=== PATIENT | female | born 1990 | race Caucasian/White ===

== ENCOUNTER 2021-07-28 12:37 | Emergency (ER) | payer MEDICAID ==
[2021-07-28 12:55] VITALS: BP 136/76; PULSE 100
--- NOTE | 2021-07-28 13:15 | EDM.PDOC ---
ED HPI GENERAL MEDICAL PROBLEM - General Chief Complaint: Eye Problems Stated Complaint: POSSIBLE PINK EYE Time Seen by Provider: 07/28/21 13:00 Source of Information: Reports: Patient, RN, RN Notes Reviewed History Limitations: Reports: No Limitations - History of Present Illness INITIAL COMMENTS - FREE TEXT/NARRATIVE: Brianna is a 30 y/o female who presents to the ED via personal vehicle with complaints of redness, swelling, and drainage to her left eye. The patient reports her symptoms began yesterday and have progressively worsened in the time. She notes the drainage from her eye is yellow and thin in consistency. She denies vision changes, headache, fever, shaking chills, sinus congestion, or cough. She denies sensation of scratching or itchiness to the eye. She denies contact with individuals with similar symptoms. She has taken no medications or performed any supportive cares for her symptoms. The patient states she is currently wearing contacts. - Related Data Allergies Allergy/AdvReac Type Severity Reaction Status Date / Time No Known Allergies Allergy Verified 07/28/21 12:53 Home Meds: Home Meds . [No Known Home Meds] 11/07/13 [History] Past Medical History - Past Health History Medical/Surgical History: Denies Medical/Surgical History HEENT History: Reports: None Cardiovascular History: Reports: None Respiratory History: Reports: None Gastrointestinal History: Reports: None Genitourinary History: Reports: None ELECTRO TECH History: Reports: Musculoskeletal History: Reports: None Neurological History: Reports: None Psychiatric History: Reports: None Endocrine/Metabolic History: Reports: None Hematologic History: Reports: None Immunologic History: Reports: None Oncologic (Cancer) History: Reports: None Dermatologic History: Reports: None - Infectious Disease History Infectious Disease History: Reports: None - Past Surgical History Head Surgeries/Procedures: Reports: None Social & Family History - Family History Family Medical History: No Pertinent Family History - Tobacco Use Tobacco Use Status *Q: Never Tobacco User - Caffeine Use Caffeine Use: Reports: Energy Drinks, Tea Other Caffeine Use: 2 cans/day - Recreational Drug Use Recreational Drug Use: No ED ROS GENERAL - Review of Systems Review Of Systems: Comprehensive ROS is negative, except as noted in HPI. ED EXAM GENERAL W FULL EYE - Physical Exam Exam: See Below Exam Limited By: No Limitations General Appearance: Alert, No Apparent Distress Eye Exam: Left Eye: Conjunctival Injection, Periorbital Changes (Erythema and edema), Bilateral Eye: EOMI, PERRL (3mm) With Correction: Yes Eyelids: Right: Normal Appearance, Left: Edema, Erythema, Lid Everted for Exam Conjunctiva & Sclera: Right: Normal Appearance, Left: Injected Extraocular Movements: Bilateral: Intact Pupils: Normal Accommodation Pupillary Size: Bilateral: 3 mm Pupillary Reaction: Bilateral: Brisk Ears: Normal External Exam, Normal Canal, Hearing Grossly Normal, Normal TMs Nose: Normal Inspection, Normal Mucosa, No Blood Throat/Mouth: Normal Inspection, Normal Oropharynx, Normal Voice, No Airway Compromise Head: Atraumatic, Normocephalic Neck: Normal Inspection, Supple, Non-Tender, Full Range of Motion Respiratory/Chest: No Respiratory Distress, Lungs Clear, Normal Breath Sounds, No Accessory Muscle Use, Chest Non-Tender Cardiovascular: Normal Peripheral Pulses, Regular Rate, Rhythm, No Gallop, No Murmur, No Rub GI/Abdominal: Normal Bowel Sounds, Soft, Non-Tender, No Distention, No Abnormal Bruit, No Mass, Pelvis Stable (Male) Exam: Deferred (Female) Exam: Deferred Rectal (Males) Exam: Deferred Rectal (Female) Exam: Deferred Back Exam: Normal Inspection, Full Range of Motion Extremities: Normal Inspection, Normal Range of Motion, Normal Capillary Refill Neurological: Alert, Oriented, CN II-XII Intact, Normal Cognition, Normal Gait, No Motor/Sensory Deficits Psychiatric: Normal Affect, Normal Mood Skin Exam: Warm, Dry, Intact, Normal Color, No Rash. No: Cyanosis, Jaundice, Mottled, Pallor Lymphatic: No Adenopathy ED EYE w/ Add Procedure - Eye Procedure Alcaine Drops Administered: No Antibiotic Oinment/Drps Admin: Left Eye Course - Vital Signs Last Recorded V/S: Last Vital Signs Temp 98.0 F 07/28/21 12:53 Pulse 100 07/28/21 12:53 Resp 18 07/28/21 12:53 BP 136/76 07/28/21 12:53 Pulse Ox 97 07/28/21 12:53 - Re-Assessments/Exams Free Text/Narrative Re-Assessment/Exam: 07/28/21 Findings of examination reviewed with patient. Will treat bacterial conjunctivitis with cipro drops. Supportive cares discussed. Patient inst ructed to follow up with primary care provider regarding todays visit. Red flag signs and symptoms which would warrant immediate reevaluation reviewed. Patient verbalized understanding and agreement with the plan of care. Departure - Departure Time of Disposition: 13:11 Disposition: Home, Self-Care 01 Condition: Good Clinical Impression: Bacterial conjunctivitis of left eye - Discharge Information *PRESCRIPTION DRUG MONITORING PROGRAM REVIEWED*: Not Applicable *COPY OF PRESCRIPTION DRUG MONITORING REPORT IN PATIENT DANE: Not Applicable Instructions: Bacterial Conjunctivitis, Adult Forms: ED Department Discharge Additional Instructions: Rx: ciprofloxacin 0.3% ophthalmic solution (#1 bottle) 1.) Start your eye drops today. 2.) Do not wear contacts while you are on antibiotic drops; do not wear your contacts from today as they are infected. 3.) Refrain from daycare settings until you have received 24 hours of antibiotics. 4.) Follow up with your primary care provider, or return to the emergency department, with any persistent or worsening symptoms despite medications. Sepsis Event Note (ED) - Evaluation Sepsis Screening Result: No Definite Risk - Focused Exam Vital Signs: Vital Signs Temp Pulse Resp BP Pulse Ox 07/28/21 12:53 98.0 F 100 18 136/76 97
== END 2021-07-28 13:18 | disposition home or self-care (01) ==
LOC: DL.ED 12:37
DX: H10.022 Other mucopurulent conjunctivitis, left eye (principal)
CPT/HCPCS: 99283

== ENCOUNTER 2021-10-06 00:27 | Emergency (ER) | payer SELFPAY ==
[2021-10-06 00:38] VITALS: BP 140/78; PULSE 104
[2021-10-06] MEDS ORDERED: Cephalexin 500 MG Cap PO ONE (00:44)
[2021-10-06] MEDS ORDERED: Bacitracin Oint 1 GM U/D Packet TOP ONE (00:45)
== END 2021-10-06 01:08 | disposition home or self-care (01) ==
LOC: DL.ED 00:27
DX: L60.0 Ingrowing nail (principal)
CPT/HCPCS: 99283; A9270

== ENCOUNTER 2022-04-10 18:54 | Inpatient (IN) | payer MEDICAID ==
[~2022-04-10 18:54] MED LIST: Acetaminophen 325 MG Tab PO PRN; Carboprost Tromethamine 250 MCG/1 ML Amp IM PRN; Lidocaine 1% 30 ML SDV INJECT PRN; Methylergonovine 0.2 MG/1 ML Amp IM PRN; Misoprostol 400 MCG (4 X 100 MCG TAB) RECTAL PRN; Ondansetron 4 MG/2 ML SDV IVPUSH PRN; Oxytocin/Normal Saline 30 UNIT/500 ML BAG IV SCH; Sodium Chloride 0.9% 10 ML Syringe FLUSH PRN; Tranexamic Acid 1,000 MG in Sodium Chloride 0.9% 100 ML IV PRN
[2022-04-10] MEDS: Misoprostol 25 MCG (1/4 of 100 MCG) Tab VAG PRN ×2 (19:49→23:43)
[2022-04-10] MEDS: Sodium Chloride 0.9% 10 ML Syringe FLUSH SCH ×2 (23:50→23:51)
[2022-04-11] MEDS: Misoprostol 25 MCG (1/4 of 100 MCG) Tab VAG PRN (03:59)
[2022-04-11] MEDS: Lactated Ringers 1,000 ML IV ONE ×2 (08:45→11:00)
[2022-04-11] MEDS ORDERED: Zolpidem 5 MG Tab PO PRN (10:47)
[2022-04-11] MEDS ORDERED: Simethicone 80 MG Tab.Chew PO PRN (10:47)
[2022-04-11] MEDS ORDERED: Benzocaine/Menthol 20%-0.5% Spray 78 GM Cannister TOP PRN (10:47)
[2022-04-11] MEDS ORDERED: Oxytocin 10 Units/1 ML SDV IM PRN (10:47)
[2022-04-11] MEDS: Sodium Chloride 0.9% 10 ML Syringe FLUSH SCH (13:05)
[2022-04-11] MEDS: Ibuprofen 800 MG Tab PO PRN (22:13)
[2022-04-11] MEDS: Docusate Sodium 100 MG Cap PO PRN (22:14)
[2022-04-12] MEDS: Ibuprofen 800 MG Tab PO PRN ×2 (08:23→20:40)
[2022-04-12] MEDS: Prenatal Multivitamin with Calcium/Folic Acid/Iron Tab PO SCH (08:23)
[2022-04-12] MEDS: Docusate Sodium 100 MG Cap PO PRN ×2 (08:23→20:40)
[2022-04-13] MEDS: Ibuprofen 800 MG Tab PO PRN (08:36)
[2022-04-13] MEDS: Prenatal Multivitamin with Calcium/Folic Acid/Iron Tab PO SCH (08:36)
[2022-04-13] MEDS: Docusate Sodium 100 MG Cap PO PRN (08:36)
[2022-04-13 08:51] VITALS: BP 135/79; PULSE 95
== END 2022-04-13 11:35 | disposition home or self-care (01) | DRG 806 ==
LOC: DL.OBCHECK 18:54 → UNDOADMOB 19:00 → DL.OB 19:00 → UNDODISOB 04-13 11:35
PROVIDERS: ADMIT Family Medicine; ATTEND Family Medicine
PROC: 10E0XZZ Delivery of Products of Conception, External Approach (ICD-10-PCS; principal; 2022-04-11)
PROC: 10907ZC Drainage of Amniotic Fluid, Therapeutic from Products of Conception, Via Natural or Artificial Opening (ICD-10-PCS; 2022-04-11)
PROC: 3E0P7VZ Introduction of Hormone into Female Reproductive, Via Natural or Artificial Opening (ICD-10-PCS; 2022-04-11)
PROC: 0HQ9XZZ Repair Perineum Skin, External Approach (ICD-10-PCS; 2022-04-11)
DX: O13.3 Gestational [pregnancy-induced] hypertension without significant proteinuria, third trimester (principal); O47.1 False labor at or after 37 completed weeks of gestation; Z37.0 Single live birth; O16.3 Unspecified maternal hypertension, third trimester; Z20.822 Contact with and (suspected) exposure to COVID-19; Z3A.40 40 weeks gestation of pregnancy; Z67.11 Type A blood, Rh negative; Z79.2 Long term (current) use of antibiotics; Z79.51 Long term (current) use of inhaled steroids; O70.0 First degree perineal laceration during delivery
CPT/HCPCS: 36415; 59025; 59409; 85027; A9270-GY; J2405; J2590; J7120; U0002

== ENCOUNTER 2024-10-10 09:07 | Inpatient (IN) | payer MEDICAID ==
[2024-10-10] MEDS ORDERED: Methylergonovine 0.2 MG/1 ML Amp IM PRN (11:09)
[2024-10-10] MEDS ORDERED: Carboprost Tromethamine 250 MCG/1 ML Amp IM PRN (11:09)
[2024-10-10] MEDS ORDERED: Sodium Chloride 0.9% 10 ML Syringe FLUSH PRN (11:09)
[2024-10-10] MEDS ORDERED: Misoprostol 100 MCG Tab RECTAL PRN (11:09)
[2024-10-10] MEDS ORDERED: Ondansetron 4 MG/2 ML SDV IVPUSH PRN (11:09)
[2024-10-10] MEDS ORDERED: Acetaminophen 325 MG Tab PO PRN (11:09)
[2024-10-10] MEDS ORDERED: Tranexamic Acid 1,000 MG in Sodium Chloride 0.9% 100 ML IV PRN (11:09)
[2024-10-10 11:31] LABS: HEMATOCRIT 37.5 % (37.0-47.0); HEMOGLOBIN 12.6 g/dL (12.0-16.0); MEAN CORPUSCULAR HEMOGLOBIN 30.1 pg (27.0-34.0); MEAN CORPUSCULAR HGB CONC 33.6 g/dL (33.0-35.0); MEAN CORPUSCULAR VOLUME 89.5 fL (80-100); RED BLOOD CELL COUNT 4.19 10^6/uL (4.2-5.4); WHITE BLOOD CELL COUNT,WBC 8.1 10^3/uL (5.0-10.0)
[2024-10-10 11:49] LABS: ALANINE AMINOTRANSFERASE,ALT 53 U/L (14-59); ASPARTATE AMNIOTRANSFERASE,AST 24 U/L (15-37); BLOOD UREA NITROGEN,BUN 8 mg/dL (7-18); CREATININE 0.65 mg/dL (0.55-1.02); LACTATE DEHYDROGENASE,LDH 151 U/L (81-234); URIC ACID 3.6 mg/dL (2.6-6.0)
[2024-10-10 11:50] LABS: ESTIMATED GFR 120 mL/min (>=60)
[2024-10-10] MEDS: Misoprostol 50 MCG (1/2 of 100 MCG) Tab VAG SCH (12:04)
[2024-10-10] MEDS: Misoprostol 25 MCG (1/4 of 100 MCG) Tab VAG PRN (16:41)
[2024-10-10 17:40] LABS: APPEARANCE,URINE CLEAR (CLEAR); BILIRUBIN,URINE NEGATIVE (NEGATIVE); COLOR,URINE DARK YELLOW (YELLOW); GLUCOSE,URINE NEGATIVE (NEGATIVE); KETONES,URINE 15 (NEGATIVE); LEUKOCYTE ESTERASE,URINE NEGATIVE (NEGATIVE); NITRITE,URINE NEGATIVE (NEGATIVE); OCCULT BLOOD,URINE NEGATIVE (NEGATIVE); PROTEIN,URINE TRACE (NEGATIVE)
[2024-10-10 17:56] LABS: CREATININE,URINE RAND 206.59 mg/dL (No establ ref range); PROTEIN CREATININE RATIO,URINE 94.4 mg/g (<150.0); PROTEIN,URINE RANDOM 19.5 mg/dL (0.0-11.9)
[2024-10-11] MEDS: Lactated Ringers 1,000 ML IV SCH (04:42)
[2024-10-11] MEDS: Oxytocin/Lactated Ringers 30 UNIT/500 ML BAG IV SCH (04:44)
[2024-10-11] MEDS: Lactated Ringers 1,000 ML IV ONE (10:10)
[2024-10-11] MEDS ORDERED: Simethicone 80 MG Tab.Chew PO PRN (13:51)
[2024-10-11] MEDS ORDERED: Sodium Chloride 0.9% 10 ML Syringe FLUSH PRN (13:51)
[2024-10-11] MEDS ORDERED: Oxytocin 10 Units/1 ML SDV IM PRN (13:51)
[2024-10-11] MEDS: Witch Hazel Medicated Pads 100/Jar TOP PRN (16:03)
[2024-10-11] MEDS: Ibuprofen 800 MG Tab PO SCH ×2 (16:03→23:28)
[2024-10-11] MEDS: Benzocaine/Menthol 20%-0.5% Spray 78 GM Cannister TOP PRN (16:04)
[2024-10-11] MEDS: Lidocaine 1% 30 ML SDV INJECT ONE (18:41)
[2024-10-11] MEDS: Docusate Sodium 100 MG Cap PO PRN (20:31)
[2024-10-12 05:59] LABS: MEAN CORPUSCULAR HEMOGLOBIN 29.2 pg (27.0-34.0); MEAN CORPUSCULAR HGB CONC 32.4 g/dL (33.0-35.0); MEAN CORPUSCULAR VOLUME 90.2 fL (80-100); RED BLOOD CELL COUNT 3.77 10^6/uL (4.2-5.4); WHITE BLOOD CELL COUNT,WBC 9.5 10^3/uL (5.0-10.0)
[2024-10-12] MEDS: Prenatal Multivitamin with Calcium/Folic Acid/Iron Tab PO SCH (08:18)
[2024-10-12 14:13] VITALS: BP 122/87; PULSE 95
== END 2024-10-12 16:00 | disposition home or self-care (01) | DRG 807 ==
LOC: DL.OBCHECK 09:07 → DL.US 09:07 → DL.OB 11:09 → UNDOADMOB 11:09 → DL.OB 13:43 → INTOOBSV 10-11 13:42 → OBSVTOIN 10-11 13:42 → DL.MS 10-12 03:25 → UNDOADMOB 10-12 03:29 → OBSVTOIN 10-12 03:29 → DL.MS 10-12 03:29 → DL.OB 10-12 03:29 → INTOOBSV 10-12 03:29
PROVIDERS: ADMIT Family Medicine; ATTEND Family Medicine
PROC: 10H07YZ Insertion of Other Device into Products of Conception, Via Natural or Artificial Opening (ICD-10-PCS; principal; 2024-10-11)
PROC: 10E0XZZ Delivery of Products of Conception, External Approach (ICD-10-PCS; 2024-10-11)
PROC: 3E0E3GC Introduction of Other Therapeutic Substance into Products of Conception, Percutaneous Approach (ICD-10-PCS; 2024-10-11)
PROC: 10907ZC Drainage of Amniotic Fluid, Therapeutic from Products of Conception, Via Natural or Artificial Opening (ICD-10-PCS; 2024-10-11)
PROC: 3E0P7VZ Introduction of Hormone into Female Reproductive, Via Natural or Artificial Opening (ICD-10-PCS; 2024-10-11)
PROC: 3E0R3BZ Introduction of Anesthetic Agent into Spinal Canal, Percutaneous Approach (ICD-10-PCS; 2024-10-11)
PROC: 00HU33Z Insertion of Infusion Device into Spinal Canal, Percutaneous Approach (ICD-10-PCS; 2024-10-11)
DX: O13.4 Gestational [pregnancy-induced] hypertension without significant proteinuria, complicating childbirth (principal); Z37.0 Single live birth; O99.210 Obesity complicating pregnancy, unspecified trimester; O99.284 Endocrine, nutritional and metabolic diseases complicating childbirth; E03.9 Hypothyroidism, unspecified; O99.214 Obesity complicating childbirth; O76 Abnormality in fetal heart rate and rhythm complicating labor and delivery; O70.0 First degree perineal laceration during delivery; O69.81X0 Labor and delivery complicated by cord around neck, without compression, not applicable or unspecified; Z3A.37 37 weeks gestation of pregnancy
CPT/HCPCS: 36415; 51701; 59025; 59409; 76819; 81003; 82565; 82570; 83615; 84156; 84450; 84460; 84520; 84550; 85027; A9270-GY; C1729; J7120